=== PATIENT | female | born 1940 | race Caucasian/White ===

== ENCOUNTER 2018-02-25 19:03 | Inpatient (IN) | payer MEDICAID, MEDICARE ==
[~2018-02-25] VITALS: Ht 172.7 cm; Wt 79.4 kg
[~2018-02-25 19:03] MED LIST: XARELTO PO
[2018-02-25] MEDS ORDERED: ALBUTEROL SULFATE 2.5 MG/3 ML NEBU ONE ×2 (19:10→19:25)
[2018-02-25] MEDS ORDERED: BENZONATATE 100 MG CAPSULE PO ONE (19:15)
[2018-02-25] MEDS ORDERED: ALBUTEROL SULFATE 2.5 MG/3 ML NEBU NEB ONE ×2 (19:15→19:30)
[2018-02-25] MEDS ORDERED: IPRATROPIUM BROMIDE 0.5 MG/2.5 ML NEBU ONE (19:26)
[2018-02-25] MEDS ORDERED: ACETAMINOPHEN ES 500 MG TABLET PO ONE (19:30)
[2018-02-25] MEDS ORDERED: IPRATROPIUM BROMIDE 0.5 MG/2.5 ML NEBU NEB ONE (19:30)
[2018-02-25 19:53] LABS: BASOPHILS % (AUTO) 0.5 % (0.0-2.0); EOSINOPHILS % (AUTO) 0.1 % (0.0-7.0); HEMATOCRIT 42.8 % (31.2-41.9); HEMOGLOBIN 14.7 g/dL (10.9-14.3); LYMPHOCYTES # (AUTO) 0.9 K/uL (20.0-40.0); MEAN CORPUSCULAR HEMOGLOBIN 31.5 uug (24.7-32.8); MEAN CORPUSCULAR HGB CONC 34 g/dL (32.3-35.6); MEAN CORPUSCULAR VOLUME 91.5 fL (75.5-95.3); MONOCYTES # (AUTO) 0.4 K/uL (2.0-10.0); MONOCYTES % (AUTO) 6.3 % (0.0-11.0); NEUTROPHILS # (AUTO) 4.7 K/uL (1.8-8.9); NEUTROPHILS % (AUTO) 78.1 % (38.5-71.5); PLATELET COUNT (AUTO) 140 K/uL (179-408); RED BLOOD CELL COUNT(AUTO) 4.67 MIL/uL (3.63-4.92)
[2018-02-25 19:55] LABS: CARBON DIOXIDE 28 mmol/L (21-32); CHLORIDE 96 mmol/L (98-107); CREATININE 0.8 mg/dL (0.6-1.3); GLUCOSE 118 mg/dL (74-106); POTASSIUM 4.1 mmol/L (3.5-5.1); UREA NITROGEN, BLOOD 13 mg/dL (7-18)
[2018-02-25] MEDS ORDERED: ACETAMINOPHEN 325 MG TABLET ONE (19:55)
[2018-02-25] MEDS ORDERED: BENZONATATE 100 MG CAPSULE ONE (19:56)
[2018-02-25] MEDS ORDERED: ACETAMINOPHEN ES 500 MG TABLET ONE (19:58)
[2018-02-25 20:08] LABS: ALANINE AMINOTRANSFERASE 34 U/L (14-59); ALKALINE PHOSPHATASE 53 U/L (50-136); ASPARTATE AMINOTRANSFERASE 47 U/L (15-37); BILIRUBIN,DIRECT 0.3 mg/dL (0.0-0.2); TOTAL PROTEIN, SERUM 8.4 g/dL (6.4-8.2)
[2018-02-25] MEDS ORDERED: FUROSEMIDE 20 MG/2 ML VIAL IV ONE (20:30)
[2018-02-25] MEDS ORDERED: AZITHROMYCIN IV 500 MG in IV DEXTROSE 5% 250 ML IV ONE (20:30)
[2018-02-25] MEDS ORDERED: CEFTRIAXONE 1 G in IV DEXTROSE 5% 50 ML IV ONE (20:30)
[2018-02-25] MEDS ORDERED: AZITHROMYCIN 500 MG VIAL IV ONE (20:36)
[2018-02-25] MEDS ORDERED: FUROSEMIDE 20 MG/2 ML VIAL ONE (20:36)
[2018-02-25] MEDS ORDERED: ASPIRIN 81 MG TAB.CHEW PO ONE (20:45)
[2018-02-25] MEDS ORDERED: CEFTRIAXONE 500 MG VIAL ONE (20:57)
[2018-02-25] MEDS ORDERED: AZITHROMYCIN 250 MG TABLET ONE (20:57)
[2018-02-25] MEDS ORDERED: AZITHROMYCIN 250 MG TABLET PO ONE (21:00)
[2018-02-25] MEDS ORDERED: ASPIRIN 81 MG TAB.CHEW ONE (21:06)
[2018-02-25] MEDS ORDERED: OMEG1000 PO (21:55)
[2018-02-25] MEDS ORDERED: FOLI1TAB16 PO (21:55)
[2018-02-25] MEDS ORDERED: NEBI5TAB8 PO (21:55)
[2018-02-25] MEDS ORDERED: APIX5TAB4 PO (21:55)
[2018-02-25 21:57] LABS: *BILIRUBIN,URIN NEGATIVE (NEGATIVE); *BLOOD, URINE 2+ (NEGATIVE); *CLARITY,URINE SLIGHTLY CLOUDY (CLEAR); *COLOR,URINE YELLOW (YELLOW); *KETONES,URINE 1+ (NEGATIVE); *PROTEIN,URINE TRACE (NEGATIVE); *UROBILINOGEN,URINE 0.2 E.U./dl (NORMAL); LEUKOCYTE ESTERASE ,URINE 1+ (NEGATIVE); NITRITE, URINE NEGATIVE (NEGATIVE); UGLUCOSE NEGATIVE (NEGATIVE)
[2018-02-25 22:01] LABS: BACTERIA,URINE FEW /HPF (NONE SEEN); SQUAMOUS EPITHELIAL CELL,UR FEW /HPF (NONE SEEN)
[2018-02-25] MEDS ORDERED: ICOS1CAP PO (22:44)
[2018-02-25] MEDS ORDERED: LORA10TA7 PO (22:44)
[2018-02-25] MEDS ORDERED: SERT50TA PO (22:44)
[2018-02-25] MEDS ORDERED: APIX5TAB PO (22:44)
[2018-02-25] MEDS ORDERED: ACET-73 PO (22:44)
[2018-02-26] VITALS (7 sets, daily range): BP systolic 95–122; BP diastolic 50–79
[2018-02-26] MEDS ORDERED: MELATONIN 3 MG TABLET PO PRN (01:15)
[2018-02-26] MEDS ORDERED: MORPHINE SULFATE 4 MG/1 ML DISP.SYRIN IV PRN (01:15)
[2018-02-26] MEDS ORDERED: ALBUTEROL SULFATE 2.5 MG/3 ML NEBU NEB PRN (01:15)
[2018-02-26] MEDS ORDERED: ACETAMINOPHEN 325 MG TABLET PO PRN (01:15)
[2018-02-26] MEDS ORDERED: ONDANSETRON 4 MG/2 ML VIAL IV PRN (01:15)
[2018-02-26] MEDS ORDERED: LEVOFLOXACIN 500 MG/D5W 100 ML ONE (01:45)
[2018-02-26] MEDS: LEVOFLOXACIN 500 MG/D5W 500 MG in PREMIXED 1 EACH IV SCH (01:51)
[2018-02-26] MEDS: PANTOPRAZOLE SODIUM 40 MG TABLET.DR PO SCH (06:21)
[2018-02-26 06:35] LABS: BASOPHILS % (AUTO) 0.2 % (0.0-2.0); EOSINOPHILS # (AUTO) 0.1 K/uL (0.0-0.7); EOSINOPHILS % (AUTO) 1.6 % (0.0-7.0); HEMATOCRIT 39.7 % (31.2-41.9); HEMOGLOBIN 13.7 g/dL (10.9-14.3); LYMPHOCYTES # (AUTO) 0.5 K/uL (20.0-40.0); LYMPHOCYTES % (AUTO) 10.4 % (20.5-51.5); MEAN CORPUSCULAR HEMOGLOBIN 31.5 uug (24.7-32.8); MEAN CORPUSCULAR HGB CONC 34 g/dL (32.3-35.6); MEAN CORPUSCULAR VOLUME 91.6 fL (75.5-95.3); MONOCYTES # (AUTO) 0.4 K/uL (2.0-10.0); MONOCYTES % (AUTO) 7.1 % (0.0-11.0); NEUTROPHILS # (AUTO) 4.2 K/uL (1.8-8.9); NEUTROPHILS % (AUTO) 80.7 % (38.5-71.5); PLATELET COUNT (AUTO) 118 K/uL (179-408); RED BLOOD CELL COUNT(AUTO) 4.34 MIL/uL (3.63-4.92); WHITE BLOOD COUNT (AUTO) 5.2 K/uL (3.8-11.8)
[2018-02-26 06:48] LABS: ALANINE AMINOTRANSFERASE 34 U/L (14-59); ALKALINE PHOSPHATASE 45 U/L (50-136); ASPARTATE AMINOTRANSFERASE 45 U/L (15-37); BILIRUBIN,TOTAL 0.7 mg/dL (0.2-1.0); CARBON DIOXIDE 27 mmol/L (21-32); CHLORIDE 99 mmol/L (98-107); CHOLESTEROL 123 mg/dL (<200); CREATININE 0.7 mg/dL (0.6-1.3); GLUCOSE 119 mg/dL (74-106); HDL CHOLESTEROL 49 mg/dL (40-60); MAGNESIUM 2.1 mg/dL (1.8-2.4); PHOSPHOROUS 3.7 mg/dL (2.5-4.9); POTASSIUM 3.5 mmol/L (3.5-5.1); TOTAL PROTEIN, SERUM 7.2 g/dL (6.4-8.2); TRIGLYCERIDES 57 MG/DL (30-150); UREA NITROGEN, BLOOD 13 mg/dL (7-18)
[2018-02-26] MEDS ORDERED: MORPHINE SULFATE 2 MG/1 ML DISP.SYRIN IV PRN (07:30)
[2018-02-26] MEDS: SERTRALINE HCL 50 MG TABLET PO SCH (08:50)
[2018-02-26] MEDS: OMEGA-3 FATTY ACIDS/FISH OIL CAPSULE PO SCH (08:50)
[2018-02-26] MEDS: FOLIC ACID 1 MG TABLET PO SCH (08:50)
[2018-02-26] MEDS: LORATADINE 10 MG TABLET PO SCH (08:50)
[2018-02-26] MEDS ORDERED: Medication Not On Formulary EA (Icosapent Ethyl (Vascepa) 1 GM) PO SCH (09:00)
[2018-02-26] MEDS ORDERED: APIXABAN 5 MG TABLET PO SCH (09:00)
[2018-02-26] MEDS ORDERED: FUROSEMIDE 20 MG/2 ML VIAL IV SCH (09:00)
[2018-02-26] MEDS ORDERED: OMEGA PO SCH (09:00)
[2018-02-26] MEDS ORDERED: Medication Not On Formulary EA (Apixaban (Eliquis) 5 MG) PO SCH (09:00)
[2018-02-26] MEDS ORDERED: IPRATROPIUM BROMIDE 0.5 MG/2.5 ML NEBU NEB PRN (10:00)
[2018-02-26] MEDS: ALBUTEROL SULFATE 1.25 MG/3 ML NEBU NEB SCH ×2 (11:00→19:26)
[2018-02-26] MEDS: IPRATROPIUM BROMIDE 0.5 MG/2.5 ML NEBU NEB SCH ×2 (11:00→19:26)
[2018-02-26] MEDS ORDERED: [UNRECOGNIZED DRUG - OTHER] PO SCH (11:36)
[2018-02-26] MEDS ORDERED: ICOSAPENT ETHYL PO SCH (11:36)
[2018-02-26] MEDS: APIXABAN 5 MG PO SCH ×2 (11:58→20:25)
[2018-02-26] MEDS ORDERED: IPRATROPIUM BROMIDE 0.5 MG/2.5 ML NEBU NEB SCH (12:00)
[2018-02-26] MEDS ORDERED: LEVALBUTEROL HCL NEB 0.63 MG/3 ML NEBU NEB SCH (12:00)
[2018-02-26] MEDS ORDERED: LORAZEPAM 0.5 MG TABLET PO PRN (12:00)
[2018-02-26] MEDS ORDERED: GUAIFENESIN/DEXTROMETHORPHAN 5 ML UDC PO PRN (13:45)
[2018-02-26 14:54] LABS: ABG BASE EXCESS 2.9 mmol/L; ABG HCO3 25.6 mmol/L; ABG PCO2 33.7 mmHg (35.0-45.0); ABG PH 7.499 (7.350-7.450); ABG PO2 53.5 mmHg (75.0-100.0); ABG SITE RIGHT BRACHIAL; ABG TOTAL HEMOGLOBIN 14.1 G/dL (12.0-16.0); COHb 1.4 % (0.5-1.5); MetHb 0.4 % (0.0-1.5); O2Hb 88.1 % (94.0-97.0); VENT MODE ROOM AIR
[2018-02-26] MEDS: ICOSAPENT ETHYL PO SCH (18:00)
[2018-02-26] MEDS: [UNRECOGNIZED DRUG - OTHER] PO SCH (18:00)
[2018-02-26] MEDS: DOCUSATE SODIUM 100 MG CAPSULE PO SCH ×2 (20:25→20:33)
[2018-02-27 00:03] VITALS: BP 120/60
[2018-02-27] MEDS: IPRATROPIUM BROMIDE 0.5 MG/2.5 ML NEBU NEB SCH ×4 (00:40→19:26)
[2018-02-27] MEDS: ALBUTEROL SULFATE 1.25 MG/3 ML NEBU NEB SCH ×4 (00:40→19:26)
[2018-02-27] MEDS: LEVOFLOXACIN 500 MG/D5W 500 MG in PREMIXED 1 EACH IV SCH (01:30)
[2018-02-27 04:00] VITALS: BP 125/74
[2018-02-27] MEDS: PANTOPRAZOLE SODIUM 40 MG TABLET.DR PO SCH ×2 (06:23→06:27)
[2018-02-27 07:11] LABS: BASOPHILS % (AUTO) 0.5 % (0.0-2.0); EOSINOPHILS # (AUTO) 0.2 K/uL (0.0-0.7); EOSINOPHILS % (AUTO) 4.1 % (0.0-7.0); HEMATOCRIT 38.5 % (31.2-41.9); HEMOGLOBIN 13.2 g/dL (10.9-14.3); LYMPHOCYTES % (AUTO) 21.4 % (20.5-51.5); MEAN CORPUSCULAR HEMOGLOBIN 31.1 uug (24.7-32.8); MEAN CORPUSCULAR HGB CONC 34 g/dL (32.3-35.6); MEAN CORPUSCULAR VOLUME 90.4 fL (75.5-95.3); MONOCYTES # (AUTO) 0.4 K/uL (2.0-10.0); MONOCYTES % (AUTO) 9.7 % (0.0-11.0); NEUTROPHILS # (AUTO) 2.9 K/uL (1.8-8.9); NEUTROPHILS % (AUTO) 64.3 % (38.5-71.5); PLATELET COUNT (AUTO) 144 K/uL (179-408); RED BLOOD CELL COUNT(AUTO) 4.26 MIL/uL (3.63-4.92); WHITE BLOOD COUNT (AUTO) 4.5 K/uL (3.8-11.8)
[2018-02-27 07:20] LABS: ALANINE AMINOTRANSFERASE 52 U/L (14-59); ALKALINE PHOSPHATASE 44 U/L (50-136); ASPARTATE AMINOTRANSFERASE 57 U/L (15-37); BILIRUBIN,TOTAL 0.5 mg/dL (0.2-1.0); CARBON DIOXIDE 29 mmol/L (21-32); CHLORIDE 101 mmol/L (98-107); CREATININE 0.7 mg/dL (0.6-1.3); GLUCOSE 103 mg/dL (74-106); MAGNESIUM 2.2 mg/dL (1.8-2.4); PHOSPHOROUS 2.9 mg/dL (2.5-4.9); POTASSIUM 3.6 mmol/L (3.5-5.1); TOTAL PROTEIN, SERUM 7.3 g/dL (6.4-8.2); UREA NITROGEN, BLOOD 10 mg/dL (7-18)
[2018-02-27] MEDS: [UNRECOGNIZED DRUG - OTHER] PO SCH ×2 (08:00→18:01)
[2018-02-27] MEDS: ICOSAPENT ETHYL PO SCH ×2 (08:00→18:01)
[2018-02-27] MEDS: APIXABAN 5 MG PO SCH ×2 (08:20→20:31)
[2018-02-27] MEDS: FOLIC ACID 1 MG TABLET PO SCH (08:21)
[2018-02-27] MEDS: SERTRALINE HCL 50 MG TABLET PO SCH (08:21)
[2018-02-27] MEDS: LORATADINE 10 MG TABLET PO SCH (08:21)
[2018-02-27] MEDS: OMEGA-3 FATTY ACIDS/FISH OIL CAPSULE PO SCH (08:21)
[2018-02-27 11:05] VITALS: BP 123/68
[2018-02-27] MEDS: METOPROLOL TARTRATE 25 MG TABLET PO SCH ×2 (12:02→21:00)
[2018-02-27 15:30] VITALS: BP 124/70
[2018-02-27 20:00] VITALS: BP 118/64
[2018-02-27] MEDS: DOCUSATE SODIUM 100 MG CAPSULE PO SCH (21:00)
[2018-02-28 00:42] VITALS: BP 115/68
[2018-02-28] MEDS: IPRATROPIUM BROMIDE 0.5 MG/2.5 ML NEBU NEB SCH ×2 (01:24→07:05)
[2018-02-28] MEDS: ALBUTEROL SULFATE 1.25 MG/3 ML NEBU NEB SCH ×2 (01:24→07:05)
[2018-02-28] MEDS ORDERED: LEVOFLOXACIN 500 MG/D5W 100 ML ONE (02:24)
[2018-02-28] MEDS: LEVOFLOXACIN 500 MG/D5W 500 MG in PREMIXED 1 EACH IV SCH (02:29)
[2018-02-28 04:00] VITALS: BP 107/66
[2018-02-28] MEDS: PANTOPRAZOLE SODIUM 40 MG TABLET.DR PO SCH (06:50)
[2018-02-28 07:22] LABS: BASOPHILS % (AUTO) 0.6 % (0.0-2.0); EOSINOPHILS # (AUTO) 0.2 K/uL (0.0-0.7); EOSINOPHILS % (AUTO) 5.6 % (0.0-7.0); HEMATOCRIT 37.9 % (31.2-41.9); HEMOGLOBIN 13.1 g/dL (10.9-14.3); LYMPHOCYTES % (AUTO) 25.7 % (20.5-51.5); MEAN CORPUSCULAR HEMOGLOBIN 31.1 uug (24.7-32.8); MEAN CORPUSCULAR HGB CONC 35 g/dL (32.3-35.6); MEAN CORPUSCULAR VOLUME 90.2 fL (75.5-95.3); MONOCYTES # (AUTO) 0.4 K/uL (2.0-10.0); MONOCYTES % (AUTO) 10.1 % (0.0-11.0); NEUTROPHILS # (AUTO) 2.3 K/uL (1.8-8.9); PLATELET COUNT (AUTO) 158 K/uL (179-408); RED BLOOD CELL COUNT(AUTO) 4.21 MIL/uL (3.63-4.92)
[2018-02-28 07:45] LABS: ALANINE AMINOTRANSFERASE 68 U/L (14-59); ALKALINE PHOSPHATASE 44 U/L (50-136); ASPARTATE AMINOTRANSFERASE 59 U/L (15-37); BILIRUBIN,TOTAL 0.3 mg/dL (0.2-1.0); CARBON DIOXIDE 30 mmol/L (21-32); CHLORIDE 101 mmol/L (98-107); CREATININE 0.6 mg/dL (0.6-1.3); GLUCOSE 86 mg/dL (74-106); MAGNESIUM 2.2 mg/dL (1.8-2.4); PHOSPHOROUS 4.1 mg/dL (2.5-4.9); UREA NITROGEN, BLOOD 13 mg/dL (7-18)
[2018-02-28] MEDS: ICOSAPENT ETHYL PO SCH (08:46)
[2018-02-28] MEDS: [UNRECOGNIZED DRUG - OTHER] PO SCH (08:46)
[2018-02-28] MEDS: LORATADINE 10 MG TABLET PO SCH (08:47)
[2018-02-28] MEDS: OMEGA-3 FATTY ACIDS/FISH OIL CAPSULE PO SCH (08:47)
[2018-02-28] MEDS: SERTRALINE HCL 50 MG TABLET PO SCH (08:47)
[2018-02-28] MEDS: FOLIC ACID 1 MG TABLET PO SCH (08:47)
[2018-02-28] MEDS: METOPROLOL TARTRATE 25 MG TABLET PO SCH (08:51)
[2018-02-28] MEDS: APIXABAN 5 MG PO SCH (08:52)
[2018-02-28 11:38] VITALS: BP 115/77
[2018-02-28 16:10] VITALS: BP 116/63
[2018-02-28] MEDS ORDERED: GUAI600T53 PO (16:57)
[2018-02-28] MEDS ORDERED: ACET325T53 PO (16:57)
[2018-02-28] MEDS ORDERED: NEBI5TAB8 PO (16:57)
[2018-02-28] MEDS ORDERED: FURO-152 PO (16:57)
[2018-02-28] MEDS ORDERED: LEVO500T2 PO (16:57)
== END 2018-02-28 17:50 | disposition home or self-care (01) | DRG 720 ==
LOC: ER 19:03 → TELE-TD 23:41 → TELE 02-27 10:44
PROVIDERS: ADMIT Internal Medicine; ATTEND Internal Medicine
DX: A41.9 Sepsis, unspecified organism (principal); I21.A1 Myocardial infarction type 2; I50.31 Acute diastolic (congestive) heart failure; J18.9 Pneumonia, unspecified organism; J96.90 Respiratory failure, unspecified, unspecified whether with hypoxia or hypercapnia; J96.01 Acute respiratory failure with hypoxia; D68.9 Coagulation defect, unspecified; E44.0 Moderate protein-calorie malnutrition; E87.1 Hypo-osmolality and hyponatremia; E87.3 Alkalosis; D69.6 Thrombocytopenia, unspecified; I48.2 Chronic atrial fibrillation; Z96.642 Presence of left artificial hip joint; Z79.01 Long term (current) use of anticoagulants; Z86.73 Personal history of transient ischemic attack (TIA), and cerebral infarction without residual deficits; I25.2 Old myocardial infarction; E05.90 Thyrotoxicosis, unspecified without thyrotoxic crisis or storm; I25.10 Atherosclerotic heart disease of native coronary artery without angina pectoris; I07.1 Rheumatic tricuspid insufficiency; F06.4 Anxiety disorder due to known physiological condition; J98.11 Atelectasis; E66.3 Overweight; Z68.26 Body mass index [BMI] 26.0-26.9, adult; I70.0 Atherosclerosis of aorta; E83.51 Hypocalcemia; R26.81 Unsteadiness on feet
CPT/HCPCS: 36415; 36600; 70030-TC; 71045; 83605; 83735; 84100; 84443; 84481; 85025; 85730; 87040; 87086; 87400; 93005; 93307; 94640; 94664; 97116; 97530; A4663; A9150; J0456; J0696; J1940; J1956; J3590; J7030; J7050; J7060; Q0144